=== PATIENT | male | born 1980 | race Caucasian/White ===

== ENCOUNTER 2023-11-30 05:34 | Emergency (ER) | payer OTHER ==
[~2023-11-30] VITALS: Ht 195.6 cm; Wt 83.9 kg
[2023-11-30] MEDS ORDERED: Morphine Sulfate 4 MG/1 ML Injection IV ONE (05:45)
== END 2023-11-30 06:46 | disposition home or self-care (01) ==
LOC: ER 05:34
DX: S46.912A Strain of unspecified muscle, fascia and tendon at shoulder and upper arm level, left arm, initial encounter (principal); V03.99XA Pedestrian with other conveyance injured in collision with car, pick-up truck or van, unspecified whether traffic or nontraffic accident, initial encounter
CPT/HCPCS: 70450; 72125; 73030; 96374; 99284-25; J2270

== ENCOUNTER → 2024-12-11 | Outpatient (CLI) | payer OTHER | LOC: LAB 18:18 → LAB SHORT 18:18 | DX: T81.49XA Infection following a procedure, other surgical site, initial encounter (principal) | CPT/HCPCS: 87070; 87075; 87147; 87205 ==